=== PATIENT | female | born 1945 | race Caucasian/White ===

== ENCOUNTER 2020-02-18 12:23 | Observation (INO) ==
[2020-02-18 12:54] LABS: Apearance,Urine CLEAR (Clear); Bilirubin,Urine Negative (Negative); Blood, Urine Negative (Negative); Glucose,Urine (UA) Negative (Negative); Ketones,Urine Negative (Negative); Nitrite,Urine Negative (Negative); Protein,Urine Negative; RBC,Urine 2 /HPF (0-4); Urine Color Straw (Yellow); Urine Specific Gravity 1.008 (1.001-1.035); Urine Urobilinogen < 2.0 EU/DL (0.2-1.0); WBC,Urine 1 /HPF (0-6)
[2020-02-18] MEDS ORDERED: NITROGLYCERIN SL 0.4 MG TABLET SL PRN (12:55)
[2020-02-18] MEDS ORDERED: HYDROmorphone 2 MG/1 ML VIAL IV STA (12:55)
[2020-02-18] MEDS ORDERED: ASPIRIN 325 MG TABLET PO STA (12:55)
[2020-02-18] MEDS ORDERED: ONDANSETRON 4 MG/2 ML VIAL IV STA (12:55)
[2020-02-18 13:09] LABS: Basophils % 0.6 % (0.0-0.8); Eosinophils # 0.1 10*3/uL (0.0-0.87); Hematocrit 36.9 VOL% (35.7-47.0); Hemoglobin 11.5 GM/DL (12.0-16.0); Immature Granulocytes % 0.7 %; Immature Granulocytes Absolute 0.05 #; Lymphocytes % 14.5 % (21.3-54.2); Mean Corpuscular HGB Conc 31.2 GM/DL (32-36); Mean Corpuscular Volume 94.1 FL (87-102); Mean Platelet Volume 10.4 FL (9.6-12.0); Monocytes % 6.2 % (1.7-12.7); Platelet Count 157 T/CUMM (130-400); Red Blood Count 3.92 MC/CUMM (3.8-5.5); Red Cell Distribution Width 13.8 % (9.3-17.3); White Blood Count 7.2 T/CUMM (4-12)
[2020-02-18 13:12] LABS: Alanine Aminotransferase 28 U/L (13-56); Albumin 3.8 G/DL (3.4-5.0); Alkaline Phosphatase 79 U/L (45-117); Aspartate Amino Transferase 23 U/L (0-37); Blood Urea Nitrogen 13 MG/DL (7-18); Calcium 9.5 MG/DL (8.5-10.1); Estimated Glom Filtration Rate 69 ML/MIN; Glucose 157 MG/DL (74-106); Total Protein 8.4 G/DL (6.4-8.3); Troponin I < 0.015 NG/ML (0.00-0.045)
[2020-02-18 13:18] LABS: INR 1.1; PT Patient Result 11.3 SECS (9.8-11.9); Partial Thromboplastin Time 27.5 SECS (23.9-33.8)
[2020-02-18] MEDS ORDERED: LABETALOL 20 MG/4 ML SYRINGE IV STA (13:29)
[2020-02-18] MEDS ORDERED: LABETALOL 20 MG/4 ML SYRINGE IV ONE (13:33)
[2020-02-18] MEDS ORDERED: DEXTROSE 50% 25 GM/50 ML VIAL IV PRN ×3 (15:15→15:27)
[2020-02-18] MEDS ORDERED: GLUCAGON 1 MG VIAL IM PRN ×3 (15:15→15:27)
[2020-02-18] MEDS ORDERED: MAGNESIUM SULF RIDER 4 GM in PREMIX 1 EACH IV PRN (15:19)
[2020-02-18] MEDS ORDERED: ALUMINUM/MAGNES/SIMETH MAX STR 30 ML UDCUP PO PRN (15:20)
[2020-02-18] MEDS ORDERED: guaiFENesin/DM ER 600-30 MG TABLET PO PRN (15:20)
[2020-02-18] MEDS ORDERED: hydrALAZINE 20 MG/1 ML VIAL IV PRN (15:20)
[2020-02-18] MEDS ORDERED: DOCUSATE SODIUM 100 MG CAPSULE PO PRN (15:20)
[2020-02-18] MEDS ORDERED: SIMETHICONE CHEW 125 MG TABLET PO PRN (15:20)
[2020-02-18] MEDS ORDERED: ACETAMINOPHEN 325 MG TABLET PO PRN (15:20)
[2020-02-18] MEDS ORDERED: LACTULOSE 20 GM/30 ML UDCUP PO PRN (15:20)
[2020-02-18] MEDS ORDERED: traZODone 50 MG TABLET PO PRN (15:20)
[2020-02-18] MEDS ORDERED: diphenhydrAMINE CAP 25 MG CAPSULE PO PRN (15:20)
[2020-02-18] MEDS ORDERED: CALCIUM CARBONATE CHEW 500 MG TABLET PO PRN (15:20)
[2020-02-18] MEDS ORDERED: ONDANSETRON 4 MG/2 ML VIAL IV PRN (15:20)
[2020-02-18] MEDS ORDERED: BISACODYL 5 MG TABLET PO PRN (15:20)
[2020-02-18] MEDS ORDERED: ZALEPLON 5 MG CAPSULE PO PRN (15:20)
[2020-02-18] MEDS ORDERED: DICYCLOMINE 10 MG CAPSULE PO PRN (15:23)
[2020-02-18] MEDS ORDERED: MECLIZINE 12.5 MG TABLET PO PRN (15:38)
[2020-02-18] MEDS ORDERED: cefTRIAXone 1,000 MG in SYRINGE 1 EACH IV STA (15:42)
[2020-02-18] MEDS: INSULIN REGULAR 100 UNIT/ML SUBCUT SCH ×2 (16:11→21:19)
[2020-02-18] MEDS: HEPARIN 5,000 UNIT/1 ML VIAL SUBCUT SCH ×2 (16:24→23:10)
[2020-02-18] MEDS: FUROSEMIDE 40 MG/4 ML VIAL IV SCH (16:25)
[2020-02-18] MEDS: MORPHINE 4 MG/1 ML VIAL IV PRN ×2 (19:29→22:40)
[2020-02-18] MEDS: ALBUTEROL/IPRATROPIUM 3 ML NEB RESP TX SCH (20:00)
[2020-02-18] MEDS ORDERED: GLIPIZIDE METFORMIN PO SCH (21:00)
[2020-02-18] MEDS: INSULIN GLARGINE 100 UNIT/ML SUBCUT SCH (21:18)
[2020-02-18] MEDS: MULTIVITAMIN (CENTRUM) TABLET PO SCH (21:18)
[2020-02-18] MEDS: rOPINIRole 0.25 MG TABLET PO SCH (21:19)
[2020-02-18] MEDS: MONTELUKAST 10 MG TABLET PO SCH (21:19)
[2020-02-18] MEDS: GABAPENTIN 300 MG CAPSULE PO SCH (21:19)
[2020-02-19] MEDS: MORPHINE 4 MG/1 ML VIAL IV PRN ×2 (01:44→04:47)
[2020-02-19] MEDS: ALBUTEROL/IPRATROPIUM 3 ML NEB RESP TX SCH ×4 (01:45→20:19)
[2020-02-19 05:01] LABS: Basophils % 0.6 % (0.0-0.8); Eosinophils # 0.2 10*3/uL (0.0-0.87); Eosinophils % 2.6 % (0.00-10.9); Hematocrit 33.4 VOL% (35.7-47.0); Hemoglobin 10.4 GM/DL (12.0-16.0); Immature Granulocytes % 0.5 %; Immature Granulocytes Absolute 0.03 #; Lymphocytes # 1.9 10*3/uL (1.4-4.0); Lymphocytes % 29.6 % (21.3-54.2); Mean Corpuscular HGB Conc 31.1 GM/DL (32-36); Mean Corpuscular Volume 92.8 FL (87-102); Mean Platelet Volume 10.7 FL (9.6-12.0); Neutrophils % 57.7 % (38.7-73.9); Platelet Count 157 T/CUMM (130-400); White Blood Count 6.2 T/CUMM (4-12)
[2020-02-19 05:04] LABS: Albumin 3.5 G/DL (3.4-5.0); Calcium 9.1 MG/DL (8.5-10.1); Osmolality,Calculated 279.5 MOS/KG (273-304); Thyroid Stimulating Hormone 3.61 uIU/ml (0.358-3.74); Total Protein 7.5 G/DL (6.4-8.3)
[2020-02-19] MEDS: MAGNESIUM SULF RIDER 2 GM in PREMIX 1 EACH IV PRN (05:44)
[2020-02-19] MEDS: HEPARIN 5,000 UNIT/1 ML VIAL SUBCUT SCH (08:35)
[2020-02-19] MEDS: FUROSEMIDE 40 MG/4 ML VIAL IV SCH ×2 (08:35→16:34)
[2020-02-19] MEDS: INSULIN REGULAR 100 UNIT/ML SUBCUT SCH ×4 (08:36→21:21)
[2020-02-19] MEDS: BUTALBITAL/ACETAMIN/CAFFEINE 50-325-40 MG TABLET PO PRN ×2 (08:41→16:33)
[2020-02-19] MEDS ORDERED: ASPIRIN CHEW 81 MG TABLET PO SCH (09:00)
[2020-02-19] MEDS ORDERED: ATORVASTATIN 10 MG TABLET PO SCH ×2 (09:00→17:53)
[2020-02-19 09:08] LABS: Risk Ratio 3.13; VLDL CHOLESTEROL 24.2 MG/DL
[2020-02-19] MEDS: LEVOTHYROXINE 25 MCG TABLET PO SCH (09:19)
[2020-02-19] MEDS: DILTIAZEM CD 240 MG CAPSULE PO SCH (09:19)
[2020-02-19] MEDS: GABAPENTIN 300 MG CAPSULE PO SCH ×3 (09:19→21:20)
[2020-02-19] MEDS: FLUoxetine 20 MG CAPSULE PO SCH (09:19)
[2020-02-19] MEDS: LOSARTAN 50 MG TABLET PO SCH (09:20)
[2020-02-19] MEDS: PANTOPRAZOLE 40 MG TABLET PO SCH (09:20)
[2020-02-19] MEDS: MELOXICAM 7.5 MG TABLET PO SCH (09:20)
[2020-02-19] MEDS: MULTIVITAMIN (CENTRUM) TABLET PO SCH ×2 (09:20→21:20)
[2020-02-19] MEDS ORDERED: DEXTROSE 10% 250 ML BAG IV PRN (10:19)
[2020-02-19 12:11] LABS: ABG Base Excess 4.2 MMOL/L (-2.5-2.5); ABG HCO3 28.1 MMOL/L (20-26); ABG Oxygen Saturation 96.3 % (95-100); ABG PCO2 47.9 MM HG (35-48); ABG PH 7.401 (7.35-7.45); ABG PO2 84.9 MM HG (80-95); ABG TCO2 26.7 MMOL/L (23-27)
[2020-02-19] MEDS: APIXABAN 5 MG TABLET PO SCH ×2 (12:56→21:20)
[2020-02-19] MEDS: POTASSIUM CHLORIDE RIDER 10 MEQ in PREMIX 1 EACH IV PRN ×2 (16:30→18:21)
[2020-02-19] MEDS: cefTRIAXone 1,000 MG in SYRINGE 1 EACH IV SCH (16:33)
[2020-02-19] MEDS ORDERED: SODIUM CHLORIDE 0.9% 1,000 ML IV SCH (17:00)
[2020-02-19 17:05] LABS: Basophils % 0.6 % (0.0-0.8); Eosinophils # 0.2 10*3/uL (0.0-0.87); Hematocrit 35.4 VOL% (35.7-47.0); Immature Granulocytes % 0.3 %; Immature Granulocytes Absolute 0.02 #; Lymphocytes # 1.6 10*3/uL (1.4-4.0); Lymphocytes % 23.2 % (21.3-54.2); Mean Corpuscular HGB Conc 31.1 GM/DL (32-36); Mean Corpuscular Volume 94.9 FL (87-102); Mean Platelet Volume 9.7 FL (9.6-12.0); Monocytes % 8.6 % (1.7-12.7); Neutrophils % 64.3 % (38.7-73.9); Platelet Count 166 T/CUMM (130-400); Red Blood Count 3.73 MC/CUMM (3.8-5.5); Red Cell Distribution Width 13.9 % (9.3-17.3); White Blood Count 6.8 T/CUMM (4-12)
[2020-02-19 17:18] LABS: INR 1.1; PT Patient Result 11.5 SECS (9.8-11.9); Partial Thromboplastin Time 30.5 SECS (23.9-33.8)
[2020-02-19 17:27] LABS: Albumin 3.5 G/DL (3.4-5.0); Bilirubin,Total 0.4 MG/DL (0.2-1.0); Calcium 9.2 MG/DL (8.5-10.1); Osmolality,Calculated 278.8 MOS/KG (273-304); Total Protein 7.9 G/DL (6.4-8.3)
[2020-02-19] MEDS ORDERED: ATORVASTATIN 80 MG TABLET PO SCH (21:00)
[2020-02-19] MEDS: MONTELUKAST 10 MG TABLET PO SCH (21:20)
[2020-02-19] MEDS: INSULIN GLARGINE 100 UNIT/ML SUBCUT SCH (21:21)
[2020-02-19] MEDS: rOPINIRole 0.25 MG TABLET PO SCH (21:21)
[2020-02-20] MEDS: BUTALBITAL/ACETAMIN/CAFFEINE 50-325-40 MG TABLET PO PRN ×2 (00:14→11:13)
[2020-02-20 05:51] LABS: Basophils % 0.6 % (0.0-0.8); Eosinophils # 0.3 10*3/uL (0.0-0.87); Eosinophils % 3.9 % (0.00-10.9); Hematocrit 33.7 VOL% (35.7-47.0); Hemoglobin 10.4 GM/DL (12.0-16.0); Immature Granulocytes % 0.3 %; Immature Granulocytes Absolute 0.02 #; Mean Corpuscular HGB Conc 30.9 GM/DL (32-36); Mean Corpuscular Volume 93.9 FL (87-102); Mean Platelet Volume 10.1 FL (9.6-12.0); Monocytes % 9.5 % (1.7-12.7); Neutrophils % 56.7 % (38.7-73.9); Platelet Count 168 T/CUMM (130-400); Red Blood Count 3.59 MC/CUMM (3.8-5.5); Red Cell Distribution Width 13.7 % (9.3-17.3); White Blood Count 6.9 T/CUMM (4-12)
[2020-02-20 06:29] LABS: Albumin 3.3 G/DL (3.4-5.0); Bilirubin,Total 0.4 MG/DL (0.2-1.0); Calcium 8.8 MG/DL (8.5-10.1); Osmolality,Calculated 280.7 MOS/KG (273-304); Total Protein 7.3 G/DL (6.4-8.3)
[2020-02-20] MEDS: ALBUTEROL/IPRATROPIUM 3 ML NEB RESP TX SCH ×2 (07:08→12:00)
[2020-02-20] MEDS: INSULIN REGULAR 100 UNIT/ML SUBCUT SCH ×3 (08:50→16:29)
[2020-02-20] MEDS ORDERED: POTASSIUM CHLORIDE 20 MEQ TABLET PO PRN (09:00)
[2020-02-20] MEDS: FUROSEMIDE 40 MG/4 ML VIAL IV SCH (11:11)
[2020-02-20] MEDS: MAGNESIUM SULF RIDER 2 GM in PREMIX 1 EACH IV PRN (11:12)
[2020-02-20] MEDS: FLUoxetine 20 MG CAPSULE PO SCH (11:14)
[2020-02-20] MEDS: DILTIAZEM CD 240 MG CAPSULE PO SCH (11:14)
[2020-02-20] MEDS: LOSARTAN 50 MG TABLET PO SCH (11:14)
[2020-02-20] MEDS: APIXABAN 5 MG TABLET PO SCH (11:14)
[2020-02-20] MEDS: GABAPENTIN 300 MG CAPSULE PO SCH ×2 (11:15→16:01)
[2020-02-20] MEDS: LEVOTHYROXINE 25 MCG TABLET PO SCH (11:15)
[2020-02-20] MEDS: MULTIVITAMIN (CENTRUM) TABLET PO SCH (11:15)
[2020-02-20] MEDS: MELOXICAM 7.5 MG TABLET PO SCH (11:15)
[2020-02-20] MEDS: PANTOPRAZOLE 40 MG TABLET PO SCH (11:16)
[2020-02-20] MEDS ORDERED: FUROSEMIDE 40 MG TABLET PO SCH (16:00)
[2020-02-20] MEDS: cefTRIAXone 1,000 MG in SYRINGE 1 EACH IV SCH (16:02)
[2020-02-20 16:03] VITALS: BP 118/62
== END 2020-02-20 17:11 | disposition home health service (06) ==
LOC: EDUNIT# → EDBD → N.EDINP 12:23 → N.ED 12:23 → N.TELES 15:38
PROVIDERS: ADMIT Internal Medicine; ATTEND Internal Medicine